=== PATIENT | male | born 1990 | race Caucasian/White ===

== ENCOUNTER 2018-02-09 09:52 | Emergency (ER) | payer OTHER ==
[~2018-02-09] VITALS: Ht 193 cm; Wt 83.1 kg
[2018-02-09 10:24] VITALS: BP 134/78
[2018-02-09] MEDS ORDERED: LIDOCAINE-MPF 1%, 5ML INFIL ONE ×2 (10:30→11:30)
[2018-02-09] MEDS ORDERED: LIDOCAINE-MPF 2%, 2ML ONE (11:16)
== END 2018-02-09 12:38 | disposition home or self-care (01) ==
LOC: ED 12:10
DX: L02.412 Cutaneous abscess of left axilla (principal)
CPT/HCPCS: 99283